=== PATIENT | male | born 1940 | race Caucasian/White ===

== ENCOUNTER 2023-07-25 05:26 | Emergency (ER) | payer BC, SELFPAY ==
[2023-07-25 05:26] VITALS: BMI 23.7
[2023-07-25 05:28] VITALS: BP 135/62
[2023-07-25 05:43] VITALS: BP 171/68
[2023-07-25 06:00] VITALS: BP 153/61
--- NOTE | 2023-07-25 06:33 | ED.GENMED ---
History of Present Illness
General
Chief Complaint: Fall
Source: patient
Exam Limitations: none
Time Seen by Provider: 07/25/23 05:59
Nursing documentation reviewed up to this point in time: agreed with
Travel History
Have you had any contact with someone who has COVID-19?: No
Do you have any symptoms of coronavirus? Fever > 100 degrees, chills, cough, shortness of breath, sore throat, loss of taste or smell, muscle aches, or headache?: No
History of Present Illness
History of Present Illness:
82-year-old male presents emergency department due to a fall out of bed. He complains of pain in his right shoulder and forehead. He does not take any blood thinners. No other injuries.
Past History
Past History
ED Past Medical History: None
ED Past Surgical History: Other
Social History
Tobacco: Non-smoker
Alcohol: None
Drug: None
Personal:
Living: with family
Review of Systems
Review of Systems
Allergies reviewed?: Yes
All Other Systems: Not applicable
Constitutional: Reports no symptoms
EENT: Reports no symptoms
Respiratory: Reports no symptoms
Cardiac: Reports no symptoms
ABD/GI: Reports no symptoms
: Reports no symptoms
Musculoskeletal: Reports no symptoms
Skin: Reports other (Forehead laceration)
Neurological: Reports no symptoms
Endocrine: Reports no symptoms
Hematologic/Lymphatic: Reports no symptoms
Psychiatric: Reports no symptoms
Phy Exam
Physical Exam
Physical Exam:
Physical Exam
General: no apparent distress, not acutely ill
Neck: supple. no meningeal signs. normal posterior pharynx
Heart: s1/s2 regular rate and rhythm, no murmur. equal radial
pulses.
HEENT: Pupils equal round reactive to light, EOMI
Lungs: no acute respiratory distress. clear bilaterally
Abdomen: normal bowel sounds. not tender. no CVAT
Neuro: alert and oriented. no focal neurological deficits cranial nerves II through XII intact
Skin: no rash, abrasion right elbow, laceration mid forehead vertical, 2.5 cm
Psychiatric: well kept. interactive and cooperative
Extremities: no edema. no calf tenderness. negative homans. good distal pulses
Course
Orders/Labs/Results
Orders:
Orders
07/25/23 06:10
CT Head W/o Iv Contrast Urgent
Comment:
Reason For Exam: fall, hit head
07/25/23 06:15
CR Shoulder - Right Min 2 View Urgent
Comment:
Reason For Exam: Fall
07/25/23 06:36
Tetanus/Diphth/Acelpertussis [Adacel] 0.5 ml IM .ONCE ONE
Vital Signs
Initial and Last Documented VS:
Initial Vital Signs
Temp Pulse Resp BP Pulse Ox
97.4 F 71 17 135/62 98
07/25/23 05:28 07/25/23 05:28 07/25/23 05:28 07/25/23 05:28 07/25/23 05:28
Last Documented Vital Signs
Temp Pulse Resp BP Pulse Ox
97.4 F 71 17 153/61 98
07/25/23 05:28 07/25/23 05:28 07/25/23 05:28 07/25/23 06:00 07/25/23 06:15
Procedures
Laceration Closure
Middle Forehead:
Status of Wound: clean
Size of Wound in cm: 2.5
Description of Wound Edges: sharp
Preparation: cleaned with saline
Anesthesia: 1% Lidocaine with epi
Revision/Debridement: routine- no revision
Wound exploration: explored to base- no FB
Type of Closure: single layer closure
Skin Closure Material: 5-0 prolene
Number of sutures: 4
MDM/Problems Addressed
Differential Diagnosis Includes:
Intracranial hemorrhage, shoulder fracture
MDM/Problems Addressed:
82-year-old male with fall, forehead laceration, right shoulder strain, right elbow abrasion. No signs intracranial hemorrhage or fracture on imaging.
*Radiology
Radiology exam reviewed: preliminary read by ED provider (Right shoulder x-ray no acute findings, CT head no acute findings) and radiology read reviewed (CT head no acute findings)
*Pulse Oximetry
Patient hypoxic: no
*EKG
Interpreted by ED Provider?: NA
*Analysis Manager Interpretation
Rate: Analysis Manager- N/A
*Critical Care Note
Total Time (30-74mins, 75-104mins- exclusive of procedures): Not Applicable
Patient Management
Social determinants of health affecting care: Living situation and Strong social support
Escalation/DeEscalation of care consider admission/obs:
Admit not indicated
ED Attending Note
-
Portions of this chart may have been created with voice recognition software.� Occasional wrong word or��sound alike� substitutions may have occurred due to the inherent limitations of voice recognition software.
Discharge Plan
Departure
Patient Disposition: Home (Routine Discharge)
Date of Disposition: 07/25/23
Time of Disposition: 07:08
Patient with high blood pressure during this ER visit?: Yes
Condition: Good
Discharge Problem:
Forehead laceration, Muscle strain of right shoulder, Fall
Instructions: Head Injury in Adults (DC), Laceration Repair With Stitches (DC), Preventing falls in adults, Shoulder Pain ED, BLOOD PRESSURE
Referrals:
Robson Rivera MD [Family Provider] - Call in 1-3 days for appt
Interventions
Interventions:
*Risk Screen - Suicide Last Done: 07/25/23 05:28
*General Assessment Last Done: 07/25/23 05:28
*Neglect/Abuse Screening Last Done: 07/25/23 05:28
*ED COVID-19 Vaccine History Last Done: 07/25/23 05:28
ED-Musculoskeletal Assessment Last Done: 07/25/23 05:45
ED- Neurological Assessment Last Done: 07/25/23 05:45
ED-Skin Assessment Last Done: 07/25/23 05:45
[2023-07-25] MEDS: TYLENOL 650 MG PO (07:17)
[2023-07-25] MEDS: ADACEL 0.5 ML IM (07:17)
== END 2023-07-25 07:29 | disposition home or self-care (01) ==
LOC: EMR 05:26
PROVIDERS: EMERGENCY PHYSICIAN Emergency Medicine; FAMILY PHYSICIAN Internal Medicine
DX: S01.81XA Laceration without foreign body of other part of head, initial encounter (principal); S46.911A Strain of unspecified muscle, fascia and tendon at shoulder and upper arm level, right arm, initial encounter; S50.311A Abrasion of right elbow, initial encounter; W06.XXXA Fall from bed, initial encounter; Z23 Encounter for immunization
CPT/HCPCS: 99284; 90471; 12011; 70450; 73030; 90715

== ENCOUNTER 2024-11-23 10:58 | Day surgery (SDC) | payer BC, SELFPAY ==
--- NOTE | 2024-11-16 12:13 | CM ---
CM was referred to patient by MARINE RN. CM spoke with patient. Patient was curious if he needed to set up PT post operatively. CM advised that he would not need PT at this time until he was cleared by his surgeon. Patient is unclear if he is staying
over night, but CM advised that PT would work with patient POD#1 and make any further recommendations.
CM will remain available as needed.
[2024-11-16 13:58] VITALS: BMI 23.4
[2024-11-16 13:59] LABS: Hematocrit 40.4 % (39.0-52.0); Hemoglobin 13.9 g/dL (13.0-18.0); Mean Corp Hgb Conc. 34.4 g/dL (33.0-37.0); Mean Corpuscular Hgb 32.6 pg (27.0-31.0); Mean Corpuscular Volume 94.8 fL (80.0-94.0); Mean Platelet Volume 8.8 fL (7.4-10.4); Platelet Count 201 10^3/uL (130-400); Red Blood Cell Count 4.26 10^6/uL (4.70-6.10); Red Cell Dist. Width 12.7 % (11.5-14.5); White Blood Cell Count 7.1 10^3/uL (4.8-10.8)
[2024-11-16 15:26] LABS: ALT (SGPT) 12 U/L (0-50); AST (SGOT) 20 U/L (17-59); Albumin 4.1 g/dl (3.5-5.0); Alkaline Phosphatase 55 U/L (38-126); Blood Urea Nitrogen 23 mg/dl (9-20); Calcium 9.5 mg/dl (8.4-10.2); Carbon Dioxide 27 mmol/L (22-30); Chloride 110 mmol/L (98-107); Estimated Creatinine Clearance 42 ml/min; Glucose 79 mg/dl (70-99); Potassium 4.9 mmol/L (3.5-5.1); Sodium 143 mmol/L (135-145); Total Bilirubin 0.5 mg/dl (0.2-1.3); Total Protein 6.6 g/dl (6.3-8.2); eGFR 53.84
[2024-11-22 09:15] VITALS: BMI 23.4
[2024-11-23] VITALS (11 sets, daily range): BP systolic 127–181; BP diastolic 58–107; BMI 23.4
[2024-11-23] MEDS: NORMOSOL-R/PLASMALYTE-A 1000 IV (11:39)
[2024-11-23] MEDS: TYLENOL 1000 MG PO (11:39)
[2024-11-23] MEDS: METHOCARBAMOL 1500 MG PO (11:39)
[2024-11-23] MEDS: CELEBREX 200 MG PO (11:40)
[2024-11-23] MEDS: LYRICA 150 MG PO (11:40)
== END 2024-11-23 16:25 | disposition home or self-care (01) ==
LOC: SDS 10:58
PROVIDERS: ATTENDING PHYSICIAN Orthopaedic Surgery Orthopaedic Surgery of the Spine; FAMILY PHYSICIAN Internal Medicine
PROC: 01NB0ZZ Release Lumbar Nerve, Open Approach (ICD-10-PCS; 2024-11-23)
DX: M48.062 Spinal stenosis, lumbar region with neurogenic claudication (principal); M43.16 Spondylolisthesis, lumbar region; M71.38 Other bursal cyst, other site; I10 Essential (primary) hypertension; H53.8 Other visual disturbances; M79.641 Pain in right hand; M54.9 Dorsalgia, unspecified; K21.9 Gastro-esophageal reflux disease without esophagitis
CPT/HCPCS: 63267; 88304; 36415; 72100; 76000; 80053; 85027; 86850; 86900; 86901; 87070